=== PATIENT | female | born 1995 | race Hispanic/Latino ===

== ENCOUNTER 2025-05-07 20:37 | Day surgery (SDC) | payer OTHER ==
[2025-05-07] MEDS ORDERED: hydrALAZINE 20 MG/ML VIAL SLOW IVP PRN (22:23)
[2025-05-08 01:04] LABS: FFN Internal QC Analyzer PASS (PASS); FFN Internal QC Cassette PASS (PASS); Fetal Fibronectin Negative (Negative)
[2025-05-08] MEDS ORDERED: Ondansetron PF 4 MG/2 ML Vial IVP PRN (02:47)
[2025-05-08] MEDS ORDERED: hydrALAZINE 20 MG/ML VIAL SLOW IVP PRN (02:47)
[2025-05-08] MEDS ORDERED: Acetaminophen 500 MG TAB PO PRN (02:47)
== END 2025-05-08 05:35 | disposition home or self-care (01) ==
LOC: CSHLD/OP 20:37
PROVIDERS: ATTEND Family Medicine
DX: O47.02 False labor before 37 completed weeks of gestation, second trimester (principal); O30.032 Twin pregnancy, monochorionic/diamniotic, second trimester; O09.42 Supervision of pregnancy with grand multiparity, second trimester; Z3A.27 27 weeks gestation of pregnancy
CPT/HCPCS: 76817; 82731; 99283

== ENCOUNTER 2025-05-09 11:28 | Inpatient (IN) | payer OTHER, SELFPAY ==
[2025-05-09 12:13] VITALS: BMI 31.6
[2025-05-09] MEDS ORDERED: Acetaminophen 500 MG TAB PO PRN (13:19)
[2025-05-09] MEDS ORDERED: Diphenoxylate HCl/Atropine Tablet PO PRN (13:19)
[2025-05-09] MEDS ORDERED: Carboprost 250 MCG/ML AMP IM PRN (13:19)
[2025-05-09] MEDS ORDERED: Methylergonovine 0.2 MG/ML VIAL IM PRN (13:19)
[2025-05-09] MEDS ORDERED: hydrALAZINE 20 MG/ML VIAL SLOW IVP PRN (13:19)
[2025-05-09] MEDS ORDERED: Ondansetron PF 4 MG/2 ML Vial IVP PRN (13:19)
[2025-05-09] MEDS ORDERED: Tranexamic Acid 1,000 MG/10 ML VIAL IVP PRN (13:19)
[2025-05-09 13:28] LABS: Hematocrit 30.5 % (34.9-44.5); Hemoglobin 10.1 g/dL (12.0-15.5); Mean Corpuscular Hemoglobin 26.4 pg (27.0-33.0); Mean Corpuscular Volume 79.8 fL (81.6-98.3); Platelet Count 188 10x3/uL (150-450); Red Blood Cell (RBC) Count 3.82 10x6/uL (3.90-5.03); White Blood Cell (WBC) Count 9.96 10x3/uL (3.5-10.5)
[2025-05-09] MEDS ORDERED: Oxytocin 30 units/NS 500 ML 500 ML IV SCH (13:30)
[2025-05-09 13:57] LABS: Syphilis Antibody Index 0.10 S/CO (<1.00 Non-Reactive)
[2025-05-09 13:59] LABS: Hep B Surf Ag - L&D Non-Reactive S/CO (NonReactive)
== END 2025-05-09 15:38 | disposition home or self-care (01) | DRG 833 ==
LOC: CSHLD/OP 11:28 → CSHLD 11:48
PROVIDERS: ADMIT Family Medicine; ATTEND Family Medicine
DX: O30.033 Twin pregnancy, monochorionic/diamniotic, third trimester (principal); Z3A.28 28 weeks gestation of pregnancy; Z79.82 Long term (current) use of aspirin; Z79.899 Other long term (current) drug therapy
CPT/HCPCS: 85027; 86780; 86850; 86900; 86901; 87340